=== PATIENT | female | born 1945 | race African-American/Black ===

== ENCOUNTER 2020-12-21 09:40 | Emergency (ER) | payer OTHER ==
[2020-12-21 10:18] VITALS: BP 136/80; PULSE 93; TEMP 97.9; BMI 33.3
[2020-12-21] MEDS ORDERED: METOCLOPRAMIDE HCL INJECTION 10 MG/2 ML VIAL IVPB ONE (10:39)
[2020-12-21] MEDS ORDERED: ACETAMINOPHEN 1000 MG/100 ML VIAL IVPB ONE (10:39)
[2020-12-21] MEDS ORDERED: ACETAMINOPHEN INJECTION 100 ML IVPB ONE (11:22)
[2020-12-21] MEDS ORDERED: METOCLOPRAMIDE HCL INJECTION 10 MG/2 ML VIAL ONE (11:22)
== END 2020-12-21 13:00 | disposition home or self-care (01) ==
LOC: JER 09:40
PROC: 3E0333Z Introduction of Anti-inflammatory into Peripheral Vein, Percutaneous Approach (ICD-10-PCS; principal; 2020-12-21)
PROC: 3E033GC Introduction of Other Therapeutic Substance into Peripheral Vein, Percutaneous Approach (ICD-10-PCS; 2020-12-21)
DX: R51.9 Headache, unspecified (principal); G89.29 Other chronic pain; R19.7 Diarrhea, unspecified
CPT/HCPCS: 96374; 96375; 99284-25; J0131

== ENCOUNTER 2023-11-03 11:41 | Emergency (ER) | payer OTHER ==
[2023-11-03 12:25] VITALS: RESP 18; TEMP 97.6; BMI 34.9
[2023-11-03] MEDS: SODIUM CHLORIDE 1,000 ML IV STA (14:17)
[2023-11-03 14:38] LABS: BASO % 0.4 % (0-2.0); EOS % 0.3 % (0-4.5); HEMATOCRIT 38.7 % (32.4-45.2); HEMOGLOBIN 12.6 GM/dL (10.7-15.3); LYMPH % 10.8 % (8-40); MCH 32.8 pg (25.7-33.7); MCHC 32.7 g/dl (32.0-36.0); MEAN CELL VOLUME 100.3 fl (80-96); MEAN PLT VOLUME 7.7 fl (7.5-11.1); MONO % 6.3 % (3.8-10.2); NEUT % 82.2 % (42.8-82.8); PLATELET COUNT 352 10^3/uL (134-434); RBC 3.85 M/mm3 (3.60-5.2); RDW 13.3 % (11.6-15.6); WHITE BLOOD COUNT 10.8 K/mm3 (4.0-10.0)
[2023-11-03 14:58] LABS: POTASSIUM 4.2 mmol/L (3.5-5.1)
[2023-11-03 15:00] LABS: CALCIUM 9.4 mg/dL (8.5-10.1)
[2023-11-03 15:01] LABS: ALBUMIN 3.7 g/dl (3.4-5.0); BLOOD UREA NITROGEN 21.1 mg/dL (7-18); MAGNESIUM 2.3 mg/dL (1.8-2.4)
[2023-11-03 15:04] LABS: CREATININE 1.1 mg/dL (0.55-1.3)
[2023-11-03 15:06] LABS: BILIRUBIN,TOTAL 0.5 mg/dL (0.2-1); TOT PROT 7.9 g/dl (6.4-8.2)
[2023-11-03 15:13] LABS: LACTIC ACID 2.1 mmol/L (0.4-2.0)
[2023-11-03] MEDS ORDERED: ACETAMINOPHEN INJECTION 100 ML ONE (18:53)
[2023-11-03] MEDS: ACETAMINOPHEN 1000 MG/100 ML BAG IVPB ONE (18:58)
[2023-11-03 20:25] VITALS: BP 143/73; PULSE 95
== END 2023-11-03 20:38 | disposition home or self-care (01) ==
LOC: JER 11:41
PROC: 3E033NZ Introduction of Analgesics, Hypnotics, Sedatives into Peripheral Vein, Percutaneous Approach (ICD-10-PCS; principal; 2023-11-03)
PROC: 3E0337Z Introduction of Electrolytic and Water Balance Substance into Peripheral Vein, Percutaneous Approach (ICD-10-PCS; 2023-11-03)
DX: E86.0 Dehydration (principal); R19.7 Diarrhea, unspecified; R42 Dizziness and giddiness; R53.1 Weakness; R10.13 Epigastric pain; R10.31 Right lower quadrant pain
CPT/HCPCS: 36415; 71045-TC-FY; 74177-TC; 80053; 82962; 83605; 83690; 83735; 84439; 84443; 84484; 85025; 93005; 93010; 99285-25; J0131; Q9967